=== PATIENT | female | born 1940 | race African-American/Black ===

== ENCOUNTER 2018-10-21 13:35 | Inpatient (IN) | payer BC ==
[~2018-10-21] VITALS: Ht 170.2 cm; Wt 82.1 kg
[~2018-10-21 13:35] MED LIST: Enoxaparin 80mg Inj SUBQ SCH
--- NOTE | 2018-10-21 14:10 | Emergency Room Report ---
History of Present Illness General Chief Complaint: Syncope Source: Patient, Medical Record, EMS Present Illness HPI This patient presents from a halfway facility. She has a history of Alzheimer's, bipolar and Parkinson's disease. Per report, the patient had an episode of near syncope after using the restroom. The patient herself has no complaints, however, at baseline she has severe dementia. She denies pain or recent illness. Per report, there were no other symptoms. The patient is asking to return to where she lives. She states "I'm ready to get out of here. " There are no other complaints. Allergies: Coded Allergies: PENICILLINS (Verified Allergy, Unknown, 10/21/18) SHELLFISH DERIVED (Verified Allergy, Unknown, 10/21/18) STRAWBERRY (Verified Allergy, Unknown, 10/21/18) Patient History Past Medical History: see triage record, old chart reviewed, HTN, psych hx - Bipolar, other - Glaucoma, Parkinsons Social History: Denies: smoking, alcohol use, drug use Reviewed Nursing Documentation: PMH: Agreed; PSxH: Agreed Nursing Documentation-PMH Past Medical History: No History, Except For Hx Hypertension: Yes - parkinson dz Review of Systems All Other Systems: negative except mentioned in HPI Physical Exam Vital Signs Date Time Temp Pulse Resp B/P (MAP) Pulse Ox O2 Delivery O2 Flow Rate FiO2 10/21/18 13:37 98.2 70 18 105/55 99 Room Air Sp02 EP Interpretation: reviewed, normal General Appearance: no apparent distress, alert, GCS 15, non-toxic Head: normocephalic, atraumatic Eyes: bilateral eye normal inspection, bilateral eye PERRL ENT: hearing grossly normal, normal pharynx, no angioedema, normal voice Neck: full range of motion, supple/symm/no masses Respiratory: chest non-tender, lungs clear, normal breath sounds, no respiratory distress, no retraction, no accessory muscle use, speaking full sentences Cardiovascular #1: regular rate, rhythm, no edema Gastrointestinal: normal bowel sounds, non tender, soft, non-distended, no guarding, no rebound Rectal: deferred Musculoskeletal: back normal, normal range of motion, non-tender Neurologic: alert, responsive, motor strength/tone normal, sensory intact, speech normal Psychiatric: mood/affect normal, no suicidal/homicidal ideation Skin: normal color, no rash, warm/dry, well hydrated Medical Decision Making Diagnostic Impression: Primary Impression: DVT (deep venous thrombosis) Additional Impression: Near syncope ER Course The patient's caregiver arrived to the emergency department later in the course of her workup and stated that a couple weeks ago she had fallen and that her primary care physician Dr. Hinds was requesting a head CT. She also states that she has noted intermittent leg swelling. She states that over the past week she has noted more swelling in the left leg and the patient has had a history of DVT in that leg. The caregiver is concerned about the swelling in the left leg. These concerns were added later. The initial pre-syncope workup was unremarkable and included EKG, CBC, CMP, urinalysis. I attempted to call the patient's primary care physician, Dr. Hinds, however Dr. Hinds did not call back or answer my calls. Therefore I was unable to speak with him. CT of the head was unremarkable. Left lower extremity ultrasound was positive for DVT. The patient did not have any respiratory symptoms, however, given the pre- syncope episode today, I felt that I should obtain a CTA of the chest. However , unfortunately, a large gauge IV was unable to be placed in the emergency department despite multiple attempts. I do not feel that it was a medical emergency at this patient obtain this study immediately. She will be admitted for further evaluation and treatment and a PICC line was ordered for tomorrow morning and she could obtain the CTA of the chest at that time. She is admitted for further evaluation and treatment. Laboratory Tests Test 10/21/18 14:45 10/21/18 15:15 White Blood Count 7.6 K/UL (4.8-10.8) Red Blood Count 5.63 M/UL (4.20-5.40) H Hemoglobin 13.9 G/DL (12.0-16.0) Hematocrit 44.5 % (37.0-47.0) Mean Corpuscular Volume 79 FL (80-99) L Mean Corpuscular Hemoglobin 24.7 PG (27.0-31.0) L Mean Corpuscular Hemoglobin Concent 31.3 G/DL (32.0-36.0) L Red Cell Distribution Width 13.9 % (11.6-14.8) Platelet Count 166 K/UL (150-450) Mean Platelet Volume 7.2 FL (6.5-10.1) Neutrophils (%) (Auto) 74.3 % (45.0-75.0) Lymphocytes (%) (Auto) 15.0 % (20.0-45.0) L Monocytes (%) (Auto) 8.7 % (1.0-10.0) Eosinophils (%) (Auto) 0.8 % (0.0-3.0) Basophils (%) (Auto) 1.2 % (0.0-2.0) Sodium Level 138 MMOL/L (136-145) Potassium Level 5.4 MMOL/L (3.5-5.1) H Chloride Level 102 MMOL/L (98-107) Carbon Dioxide Level 28 MMOL/L (21-32) Anion Gap 8 mmol/L (5-15) Blood Urea Nitrogen 17 mg/dL (7-18) Creatinine 1.4 MG/DL (0.55-1.30) H Estimate Glomerular Filtration Rate mL/min (>60) Glucose Level 134 MG/DL (74-106) H Calcium Level 8.8 MG/DL (8.5-10.1) Total Bilirubin 0.3 MG/DL (0.2-1.0) Aspartate Amino Transferase (AST) 25 U/L (15-37) Alanine Aminotransferase (ALT) 13 U/L (12-78) Alkaline Phosphatase 114 U/L (46-116) Troponin I 0.000 ng/mL (0.000-0.056) Total Protein 7.9 G/DL (6.4-8.2) Albumin 3.0 G/DL (3.4-5.0) L Globulin 4.9 g/dL Albumin/Globulin Ratio 0.6 (1.0-2.7) L Urine Color Pale yellow Urine Appearance Clear Urine pH 6 (4.5-8.0) Urine Specific Sutter 1.010 (1.005-1.035) Urine Protein Negative (NEGATIVE) Urine Glucose (UA) Negative (NEGATIVE) Urine Ketones Negative (NEGATIVE) Urine Blood Negative (NEGATIVE) Urine Nitrite Negative (NEGATIVE) Urine Bilirubin Negative (NEGATIVE) Urine Urobilinogen Normal MG/DL (0.0-1.0) Urine Leukocyte Esterase Negative (NEGATIVE) EKG Diagnostic Results Rate: normal Rhythm: NSR ST Segments: no acute changes Rhythm Strip Diag. Results EP Interpretation: yes Rate: 60's Rhythm: NSR, no PVC's, no ectopy Chest X-Ray Diagnostic Results Chest X-Ray Diagnostic Results : Chest X-Ray Ordered: Yes # of Views/Limited/Complete: 1 View Indication: Other EP Interpretation: Yes Interpretation: no consolidation, no effusion, no pneumothorax, no acute cardiopulmonary disease Impression: No acute disease Electronically Signed by: Tierney Diamond DO CT/MRI/US Diagnostic Results CT/MRI/US Diagnostic Results : Imaging Test Ordered: CT head, US LLE, CTA chest pending (to be done as inpatient) Impression No acute findings. Specifically no intracranial bleed, mass effect or edema. See official report. US LLE: +DVT Last Vital Signs Date Time Temp Pulse Resp B/P (MAP) Pulse Ox O2 Delivery O2 Flow Rate FiO2 10/21/18 13:37 98.2 70 18 105/55 99 Room Air Disposition: ADMITTED INPATIENT Condition: Serious Tierney Diamond DO Oct 21, 2018 14:10
[2018-10-21 14:34] VITALS: BP 101/46
[2018-10-21] MEDS ORDERED: LATANOPROST 0.7.5 ML OP (14:47)
[2018-10-21] MEDS ORDERED: DONEPEZIL HCL10 MG ORAL (14:47)
[2018-10-21] MEDS ORDERED: KLONOPIN0.5 MG ORAL (14:47)
[2018-10-21] MEDS ORDERED: SERTRALINE HCL25 MG ORAL (14:47)
[2018-10-21] MEDS ORDERED: FUROSEMIDE40 MG ORAL (14:47)
[2018-10-21] MEDS ORDERED: VITAMIN D400 INTLU ORAL (14:47)
[2018-10-21] MEDS ORDERED: QUETIAPINE FUM400 MG ORAL (14:47)
[2018-10-21] MEDS ORDERED: CRANBERRY400 M1 PO (14:47)
[2018-10-21] MEDS ORDERED: POTASSIUM CHLO20 ME2 ORAL (14:47)
[2018-10-21] MEDS ORDERED: DEPAKOTE250 MG PO (14:47)
[2018-10-21] MEDS ORDERED: NAMENDA10 MG ORAL (14:47)
--- NOTE | 2018-10-21 14:47 | Diagnostic Imaging Report ---
Indication: Chest pain Technique: One view of the chest Comparison: none Findings: Suboptimal inspiration. The heart is upper limits normal in size. Lungs and pleural spaces are clear except for minimal central bronchial wall thickening. Impression: No acute process
[2018-10-21 14:54] LABS: BASOPHILS % (AUTO) 1.2 % (0.0-2.0); EOSINOPHILS % (AUTO) 0.8 % (0.0-3.0); HEMATOCRIT 44.5 % (37.0-47.0); HEMOGLOBIN 13.9 G/DL (12.0-16.0); MEAN CORPUSCULAR VOLUME 79 FL (80-99); MONOCYTES % (AUTO) 8.7 % (1.0-10.0); NEUTROPHILS % (AUTO) 74.3 % (45.0-75.0); PLATELET COUNT 166 K/UL (150-450); RED BLOOD COUNT 5.63 M/UL (4.20-5.40); RED CELL DISTRIBUTION WIDTH 13.9 % (11.6-14.8); WHITE BLOOD COUNT 7.6 K/UL (4.8-10.8)
[2018-10-21 15:08] LABS: ANION GAP 8 mmol/L (5-15); BLOOD UREA NITROGEN 17 mg/dL (7-18); CALCIUM 8.8 MG/DL (8.5-10.1); CARBON DIOXIDE 28 MMOL/L (21-32); CHLORIDE 102 MMOL/L (98-107); CREATININE 1.4 MG/DL (0.55-1.30); POTASSIUM 5.4 MMOL/L (3.5-5.1); SODIUM 138 MMOL/L (136-145)
[2018-10-21 15:13] LABS: ALANINE AMINOTRANSFERASE 13 U/L (12-78); ALBUMIN/GLOBULIN RATIO 0.6 (1.0-2.7); ALKALINE PHOSPHATASE 114 U/L (46-116); ASPARTATE AMINO TRANSFERASE 25 U/L (15-37); BILIRUBIN,TOTAL 0.3 MG/DL (0.2-1.0)
[2018-10-21 15:40] LABS: APPEARANCE,URINE CLEAR; BILIRUBIN, URINE NEGATIVE (NEGATIVE); COLOR,URINE PALE YELLOW; GLUCOSE, URINE (UA) NEGATIVE (NEGATIVE); KETONES,URINE NEGATIVE (NEGATIVE); LEUKOCYTE ESTERASE ,URINE NEGATIVE (NEGATIVE); NITRITE,URINE NEGATIVE (NEGATIVE); PH,URINE 6 (4.5-8.0); PROTEIN,URINE NEGATIVE (NEGATIVE); UROBILINOGEN,URINE NORMAL MG/DL (0.0-1.0)
[2018-10-21 15:56] VITALS: BP 118/73
[2018-10-21] MEDS ORDERED: Isovue-370 150ml vial INJ PRN (16:30)
--- NOTE | 2018-10-21 16:48 | Diagnostic Imaging Report ---
Indication: Left leg pain Technique: Grayscale and duplex images of the left lower extremity veins Comparison: none Findings: Hypoechoic incompletely occlusive thrombus is seen within the left common femoral vein. This results in incomplete compressibility. Thrombus also appears to extend into the orifice of the greater saphenous vein. There is some preserved flow despite the presence of a thrombus. The femoral and popliteal veins demonstrate no evidence of intraluminal thrombus, normal compressibility, normal phasic Doppler waveforms with normal augmentation response Impression: Positive for incompletely occlusive deep venous thrombosis of the left common femoral vein, with involvement of the greater saphenous venous orifice Findings discussed by phone with Dr. Lutz in the emergency room at the time of interpretation
--- NOTE | 2018-10-21 17:01 | Diagnostic Imaging Report ---
Indication: Altered mental status Technique: spiral acquisitions obtained through the brain. Angled axial and coronal 5 x 5 mm slices were reconstructed. No IV contrast utilized. Radiation dose was minimized using automated exposure control Total dose length product 2424.7 mGycm. CTDIvol(s) 70.38,70.38,70.38 mGy Comparison: none FINDINGS: There is slight image degradation due to motion artifact, despite multiple acquisitions No acute hemorrhage or edema. No mass effect or midline shift. There is age-related enlargement of the ventricles and extra axial CSF spaces. There is periventricular deep white matter ischemic change. Normal rhodes-white differentiation. Visualized orbits are unremarkable. Visualized sinuses are unremarkable. Intact calvarium. IMPRESSION: Chronic and age-related changes. Negative for acute intracranial bleed or mass effect The CT scanner at [facility] is accredited by the [employer] and the scans are performed using protocols designed to limit radiation exposure to as low as reasonably achievable to attain images of sufficient resolution adequate for diagnostic evaluation
[2018-10-21] MEDS ORDERED: Lidocaine 1% Plain 30 ml INJ ONE (18:00)
[2018-10-21] MEDS ORDERED: Heparin 2000 units/Ns 1000ml INJ ONE (18:00)
[2018-10-21] MEDS ORDERED: Enoxaparin 80mg Inj SUBQ ONE (18:30)
[2018-10-21] MEDS ORDERED: CARBOXYMETHYLCELLULOSE OP (18:33)
[2018-10-21] MEDS ORDERED: ARTIFICIAL TEAR15 ML BOTH EYES (18:33)
[2018-10-21] MEDS ORDERED: VRAYLAR PO (18:33)
[2018-10-21] MEDS ORDERED: BRIMONIDINE TART5 ML BOTH EYES (18:33)
[2018-10-21] MEDS ORDERED: Dyna-Hex 2% Top Sol 2oz TOPIC SCH (20:00)
[2018-10-21 21:30] VITALS: BP 104/39
[2018-10-21] MEDS ORDERED: Guaifenesin/DM 10ml syrup ORAL PRN (22:45)
[2018-10-22] VITALS: BP 139/57
[2018-10-22] MEDS ORDERED: Enoxaparin 80mg Inj SUBQ SCH
[2018-10-22] MEDS: Depakote 500mg tab ORAL SCH ×3 (00:24→21:00)
[2018-10-22] MEDS: Donepezil 10mg tab ORAL SCH ×2 (00:24→21:28)
[2018-10-22 04:00] VITALS: BP 125/60
[2018-10-22 07:23] LABS: BASOPHILS % (AUTO) 1.5 % (0.0-2.0); EOSINOPHILS % (AUTO) 2.4 % (0.0-3.0); HEMATOCRIT 40.2 % (37.0-47.0); HEMOGLOBIN 12.9 G/DL (12.0-16.0); LYMPHOCYTES % (AUTO) 42.6 % (20.0-45.0); MEAN CORPUSCULAR VOLUME 79 FL (80-99); MONOCYTES % (AUTO) 9.1 % (1.0-10.0); NEUTROPHILS % (AUTO) 44.4 % (45.0-75.0); PLATELET COUNT 140 K/UL (150-450); RED BLOOD COUNT 5.12 M/UL (4.20-5.40); RED CELL DISTRIBUTION WIDTH 13.4 % (11.6-14.8); WHITE BLOOD COUNT 5.1 K/UL (4.8-10.8)
[2018-10-22 07:43] LABS: ALANINE AMINOTRANSFERASE 12 U/L (12-78); ALBUMIN 2.7 G/DL (3.4-5.0); ALBUMIN/GLOBULIN RATIO 0.6 (1.0-2.7); ALKALINE PHOSPHATASE 103 U/L (46-116); ANION GAP 6 mmol/L (5-15); ASPARTATE AMINO TRANSFERASE 20 U/L (15-37); BILIRUBIN,TOTAL 0.4 MG/DL (0.2-1.0); BLOOD UREA NITROGEN 11 mg/dL (7-18); CALCIUM 8.2 MG/DL (8.5-10.1); CARBON DIOXIDE 28 MMOL/L (21-32); CHLORIDE 103 MMOL/L (98-107); CREATININE 1.1 MG/DL (0.55-1.30); PHOSPHORUS 2.8 MG/DL (2.5-4.9); POTASSIUM 4.1 MMOL/L (3.5-5.1); SODIUM 137 MMOL/L (136-145)
[2018-10-22 08:00] VITALS: BP 113/61
[2018-10-22] MEDS ORDERED: Furosemide 40mg tab ORAL SCH (09:00)
[2018-10-22 09:31] LABS: CHOLESTEROL 193 MG/DL (< 200); HDL CHOLESTEROL 39 MG/DL (40-60); TRIGLYCERIDES 168 MG/DL (30-150)
[2018-10-22] MEDS: Artificial Tears 1.4% Op Soln BOTH EYES SCH ×3 (09:54→17:46)
[2018-10-22] MEDS: Brimonidine 0.2% Opth Sol BOTH EYES SCH ×2 (09:55→17:46)
[2018-10-22] MEDS: Vitamin D 1000 IU Tab ORAL SCH (09:55)
[2018-10-22] MEDS: Sertraline 50mg tab ORAL SCH (09:56)
[2018-10-22] MEDS: Memantine 10mg tab ORAL SCH (09:56)
--- NOTE | 2018-10-22 10:22 | History & Physical ---
History and Physical History & Physicial This patient presents from a senior living facility. She has a history of Alzheimer's, bipolar and Parkinson's disease. Per report, the patient had an episode of near syncope after using the restroom. The patient herself has no complaints, however, at baseline she has severe dementia. She denies pain or recent illness. Per report, there were no other symptoms. The patient is asking to return to where she lives. She states "I'm ready to get out of here. " There are no other complaints. Allergies: PENICILLINS (Verified Allergy, Unknown, 10/21/18) SHELLFISH DERIVED (Verified Allergy, Unknown, 10/21/18) STRAWBERRY (Verified Allergy, Unknown, 10/21/18) Past Medical History: see triage record, old chart reviewed, HTN, psych hx - Bipolar, other - Glaucoma, Parkinsons Social History: Denies: smoking, alcohol use, drug use Reviewed Nursing Documentation: PMH: Agreed; PSxH: Agreed Nursing Documentation-PMH Past Medical History: No History, Except For Hx Hypertension: Yes - parkinson dz examined DVT Dementia Psych disease near syncope [id number] Ronnie Torres MD Oct 22, 2018 10:22
[2018-10-22 12:00] VITALS: BP 106/84
[2018-10-22] MEDS: Enoxaparin 80mg Inj SUBQ SCH (12:31)
--- NOTE | 2018-10-22 13:00 | History and Physical Report ---
DATE OF ADMISSION: 10/21/2018 HISTORY OF PRESENT ILLNESS: The patient is a 78-year-old female from [facility], came into our emergency room with near syncope and was found to also have acute DVT. The patient has history of Alzheimer's, bipolar's, Parkinson's, and apparently a history of near falling down was given by the environmental protection geologist to the ER physician. The patient has a baseline severe dementia. ALLERGIES: Penicillin, shellfish, and strawberry. PAST HISTORY: Hypertension, psych disease, bipolar, glaucoma, and Parkinson's. MEDICATIONS: The patient is normally taking in the facility includes eye drops and psych medications including Klonopin, Depakote, Aricept, Namenda, Seroquel, and Zoloft. The patient is also on low dose of Lasix and potassium chloride. PHYSICAL EXAMINATION: GENERAL: This morning, the patient is not in any distress. Not a historian. VITAL SIGNS: Afebrile, pulse rate varies from 55 to 65, blood pressure 113/61. HEENT: Head is normocephalic. Sclerae not icteric. NECK: Supple. LUNGS: No wheeze. HEART: Regular, somewhat bradycardic. ABDOMEN: Soft. EXTREMITIES: Lower extremities, the patient has bilateral edema. DIAGNOSTIC DATA: The chest x-ray, which was done showed no acute process. The head CT showed chronic changes, negative for intracranial bleed. The Doppler showed deep venous thrombosis of the left common femoral artery. IMPRESSION: 1. DVT. 2. Near syncope. 3. Dementia. 4. History of psych disease. PLAN: The patient's psych medications will be adjusted, blood pressure with orthostatic is going to be checked. Psych evaluation will be requested. Meanwhile, the patient will be started on Lovenox and Coumadin with monitoring the PT. According to how the patient's condition evolves, we will make the proper changes in our future management. Ronnie Torres M.D. DR: LOUIE JOB#: [id number] CC:
[2018-10-22 14:00] LABS: INR 0.9 (0.9-1.1)
[2018-10-22 16:00] VITALS: BP 120/76
[2018-10-22] MEDS ORDERED: Warfarin Sodium 10mg ORAL ONE (17:00)
[2018-10-22 20:00] VITALS: BP 110/51
[2018-10-22] MEDS ORDERED: Nail Polish Remover TOPIC ONE (21:00)
[2018-10-22] MEDS: Latanoprost 0.005% Opth 2.5ml Soln BOTH EYES SCH (21:28)
[2018-10-23] VITALS: BP 113/62
[2018-10-23] MEDS: Enoxaparin 80mg Inj SUBQ SCH ×2 (00:21→12:57)
[2018-10-23 04:00] VITALS: BP 119/71
[2018-10-23 08:00] VITALS: BP 115/74
[2018-10-23] MEDS: Artificial Tears 1.4% Op Soln BOTH EYES SCH ×3 (08:24→17:54)
[2018-10-23] MEDS: Memantine 10mg tab ORAL SCH (08:25)
[2018-10-23] MEDS: Sertraline 50mg tab ORAL SCH (08:25)
[2018-10-23] MEDS: Brimonidine 0.2% Opth Sol BOTH EYES SCH ×2 (08:25→17:53)
[2018-10-23] MEDS: Vitamin D 1000 IU Tab ORAL SCH (08:25)
[2018-10-23] MEDS: Depakote 500mg tab ORAL SCH (08:26)
--- NOTE | 2018-10-23 09:26 | General Progress Note ---
Assessment/Plan Problem List: (1) DVT (deep venous thrombosis) ICD Codes: I82.409 - Acute embolism and thrombosis of unspecified deep veins of unspecified lower extremity SNOMED: 644446135 (2) Near syncope ICD Codes: R55 - Syncope and collapse SNOMED: 637188494 Status: stable Status Narrative deep venous thrombosis of the left common femoral artery. IMPRESSION: 1. DVT. deep venous thrombosis of the left common femoral artery. 2. Near syncope. 3. Dementia. 4. History of psych disease. Assessment/Plan coumadin Lovenox adjust psych meds DC in am ? Subjective ROS Limited/Unobtainable: No Constitutional: Reports: malaise Allergies: Coded Allergies: PENICILLINS (Verified Allergy, Unknown, 10/21/18) SHELLFISH DERIVED (Verified Allergy, Unknown, 10/21/18) STRAWBERRY (Verified Allergy, Unknown, 10/21/18) Objective Last 24 Hour Vital Signs Date Time Temp Pulse Resp B/P (MAP) Pulse Ox O2 Delivery O2 Flow Rate FiO2 10/23/18 04:00 61 10/23/18 04:00 97.0 62 18 119/71 (87) 99 10/23/18 00:00 98.4 59 18 113/62 (79) 100 10/23/18 00:00 57 10/22/18 21:00 Room Air 10/22/18 20:00 59 10/22/18 20:00 98.1 58 18 110/51 (70) 98 10/22/18 16:00 61 10/22/18 16:00 98.3 67 18 120/76 (91) 100 10/22/18 12:00 98.1 60 18 106/84 (91) 99 10/22/18 12:00 54 Intake and Output 10/22/18 10/23/18 19:00 07:00 Intake Total 390 ml Balance 390 ml Intake Oral 390 ml # Voids 2 2 Laboratory Tests 10/22/18 13:24: Prothrombin Time 10.0, Prothromb Time International Ratio 0.9, Activated Partial Thromboplast Time 24 10/23/18 05:30: Prothrombin Time 10.8, Prothromb Time International Ratio 1.0 Height (Feet): 5 Height (Inches): 7.00 Weight (Pounds): 181 General Appearance: no apparent distress Cardiovascular: normal rate, bradycardia Respiratory/Chest: lungs clear Abdomen: soft Objective no change Ronnie Torres MD Oct 23, 2018 09:26
[2018-10-23 12:00] VITALS: BP 109/54
[2018-10-23 16:00] VITALS: BP 115/58
[2018-10-23] MEDS ORDERED: Warfarin Sodium 7.5mg ORAL SCH (17:00)
[2018-10-23 20:00] VITALS: BP 117/86
[2018-10-23] MEDS: Donepezil 10mg tab ORAL SCH (20:52)
[2018-10-23] MEDS: Latanoprost 0.005% Opth 2.5ml Soln BOTH EYES SCH (20:52)
[2018-10-23] MEDS ORDERED: Depakote 125mg Sprinkles ORAL SCH (21:00)
[2018-10-23] MEDS ORDERED: Depakote 500mg tab ORAL SCH (21:00)
--- NOTE | 2018-10-23 22:41 | Consultation ---
History of Present Illness General Date patient seen: Oct 22, 2018 Chief Complaint: Syncope Present Illness HPI 78-year-old female with hx of mmp, dementia and depression who was admitted from [facility], with near syncope and acute DVT. The pt is more confused than baseline the wound care nurse was in room. the pt cont to have episodes of agitation. The pt is on multiple psychotropic medications. the pt is unable to provide meaningful history and is Allergies: Coded Allergies: PENICILLINS (Verified Allergy, Unknown, 10/21/18) SHELLFISH DERIVED (Verified Allergy, Unknown, 10/21/18) STRAWBERRY (Verified Allergy, Unknown, 10/21/18) Medication History Scheduled Brimonidine Tartrate* (Alphagan*), 1 DROP BOTH EYES BID, (Reported) Clonazepam* (Klonopin*), 0.5 MG ORAL Q12HR, (Reported) Cranberry Fruit (Cranberry), 400 MG PO BID, (Reported) Dextran 70/Hypromellose (Artificial Tears Eye Drops*), 1 DROP BOTH EYES TID, ( Reported) Divalproex Sodium* (Depakote*), 500 MG PO Q12HR, (Reported) Donepezil Hcl* (Donepezil Hcl*), 10 MG ORAL QHS, (Reported) Furosemide* (Lasix*), 40 MG ORAL DAILY, (Reported) Latanoprost/Pf (Latanoprost 0.005% Eye Drop), 7.5 ML OP BEDTIME, (Reported) Memantine Hcl* (Namenda*), 10 MG ORAL DAILY, (Reported) Potassium Chloride (Potassium Chloride), 20 MEQ ORAL DAILY, (Reported) Quetiapine Fumarate* (Quetiapine Fumarate*), 100 MG ORAL TID, (Reported) Sertraline Hcl* (Sertraline Hcl*), 50 MG ORAL DAILY, (Reported) Vitamin D (Vitamin D3), 2,000 UNITS ORAL DAILY, (Reported) [Celluvisc Lubricant], 1 DROP OP QHS, (Reported) [Vraylar], 3 MG PO DAILY, (Reported) Patient History Limited by: medical condition History Provided By: Patient, Medical Record, PMD Healthcare decision maker Dr. Eliana Bass Resuscitation status Full Code Advanced Directive on File No Past Medical/Surgical History Past Medical/Surgical History: (1) DVT (deep venous thrombosis) (2) Near syncope (3) Diabetes 1.5, managed as type 2 Review of Systems Psychiatric: Reports: prior hx, anxiety, depressed feelings, emotional problems Physical Exam General Appearance: WD/WN, alert, confused, agitated Neurologic: responsive, disoriented, depressed affect Last 24 Hour Vital Signs Date Time Temp Pulse Resp B/P (MAP) Pulse Ox O2 Delivery O2 Flow Rate FiO2 10/23/18 21:00 Room Air 10/23/18 20:00 98.7 67 18 117/86 (96) 96 10/23/18 20:00 62 10/23/18 16:00 64 10/23/18 16:00 98.7 68 16 115/58 (77) 97 10/23/18 12:00 98.3 63 18 109/54 (72) 97 10/23/18 12:00 64 10/23/18 09:00 Room Air 10/23/18 08:00 61 10/23/18 08:00 98.1 62 18 115/74 (88) 99 10/23/18 04:00 61 10/23/18 04:00 97.0 62 18 119/71 (87) 99 10/23/18 00:00 98.4 59 18 113/62 (79) 100 10/23/18 00:00 57 Intake and Output 10/22/18 10/23/18 19:00 07:00 Intake Total 390 ml Balance 390 ml Intake Oral 390 ml # Voids 2 2 Laboratory Tests Test 10/23/18 05:30 Prothrombin Time 10.8 SEC (9.30-11.50) Prothromb Time International Ratio 1.0 (0.9-1.1) Height (Feet): 5 Height (Inches): 7.00 Weight (Pounds): 181 Medications Current Medications Medications (Trade) Dose Ordered Sig/Vijay Route PRN Reason Start Time Stop Time Status Last Admin Dose Admin Acetaminophen (Tylenol) 650 mg Q4H PRN ORAL Mild Pain/Temp > 100.5 10/21/18 22:45 11/20/18 22:44 Artificial Tears (Akwa-Tears) 1 drop TID BOTH EYES 10/22/18 09:00 11/21/18 08:59 10/23/18 17:54 Brimonidine Tartrate (Alphagan) 1 drop BID BOTH EYES 10/22/18 09:00 11/21/18 08:59 10/23/18 17:53 Divalproex Sodium (Depakote Sprinkles) 500 mg Q12HR ORAL 10/23/18 21:00 11/22/18 20:59 10/23/18 20:52 Donepezil HCl (Aricept) 10 mg QHS ORAL 10/21/18 23:30 11/20/18 23:29 10/23/18 20:52 Enoxaparin Sodium (Lovenox) 80 mg Q12H SUBQ 10/22/18 12:00 11/21/18 11:59 10/23/18 12:57 Guaifenesin/ Dextromethorphan (Robitussin DM Syrup) 10 ml Q4H PRN ORAL For Cough 10/21/18 22:45 11/20/18 22:44 Latanoprost (Xalatan) 1 drop BEDTIME BOTH EYES 10/22/18 21:00 11/21/18 20:59 10/23/18 20:52 Memantine (Namenda) 10 mg DAILY ORAL 10/22/18 09:00 11/21/18 08:59 10/23/18 08:25 Pantoprazole (Protonix) 40 mg BID ORAL 10/22/18 18:00 11/21/18 17:59 10/23/18 17:53 Sertraline HCl (Zoloft) 50 mg DAILY ORAL 10/22/18 09:00 11/21/18 08:59 10/23/18 08:25 Vitamin D (Vitamin D) 2,000 intlu DAILY ORAL 10/22/18 09:00 11/21/18 08:59 10/23/18 08:25 Warfarin Sodium (Coumadin) 7.5 mg DAILY@17 ORAL 10/23/18 17:00 10/28/18 16:59 10/23/18 17:53 Assessment/Plan Problem List: (1) Dementia with behavioral disturbance ICD Codes: F03.91 - Unspecified dementia with behavioral disturbance SNOMED: 2701962878216 Status: unchanged Assessment/Plan dc aricept dc nemanda decrease depakote decrease seroquel the pt lacks capacity to make decisions. MIPS Medication Reconciliation Is this a Psycho/Diag encounte: Yes Unhealthy Alcohol Use 431 (psycho/diag only) Patient was screened for unhealthy alcohol use today or within the past 2 years. Patient was NOT identified as an unhealthy alcohol user. Tobacco Use 226 (psycho/diag only) Patient was screened for tobacco use today or within the past 2 years. Patient was NOT identified as a tobacco user. BMI 128 (psycho/diag only) BMI was documented today or within the past year. BMI was outside normal parameters, and the patient received counseling. Depression 134,411,370 (psycho/diag only) Depression screening was performed today. PHQ-9 Score: 2 Does this Patient have Dementi: Yes Safety Screening-Dementia 286 (psycho/diag only) Safety screening performed today-negative. Caregiver Health-Dementia 288 (psycho/diag only) Caregiver was informed today that he/she is at an increased risk of illness, including circulatory and heart conditions, respiratory disease, hypertension, anxiety, and depression. Caregiver was provided with education on dementia disease management and referred to additional resources for support. Ramon De Paz MD Oct 23, 2018 22:41
--- NOTE | 2018-10-23 22:42 | General Progress Note ---
Assessment/Plan Problem List: (1) Dementia with behavioral disturbance ICD Codes: F03.91 - Unspecified dementia with behavioral disturbance SNOMED: 9295661847020 Status: stable, progressing Subjective Date patient seen: Oct 23, 2018 Neurologic/Psychiatric: Reports: anxiety Allergies: Coded Allergies: PENICILLINS (Verified Allergy, Unknown, 10/21/18) SHELLFISH DERIVED (Verified Allergy, Unknown, 10/21/18) STRAWBERRY (Verified Allergy, Unknown, 10/21/18) Subjective the child care center administrator in room Objective Last 24 Hour Vital Signs Date Time Temp Pulse Resp B/P (MAP) Pulse Ox O2 Delivery O2 Flow Rate FiO2 10/23/18 21:00 Room Air 10/23/18 20:00 98.7 67 18 117/86 (96) 96 10/23/18 20:00 62 10/23/18 16:00 64 10/23/18 16:00 98.7 68 16 115/58 (77) 97 10/23/18 12:00 98.3 63 18 109/54 (72) 97 10/23/18 12:00 64 10/23/18 09:00 Room Air 10/23/18 08:00 61 10/23/18 08:00 98.1 62 18 115/74 (88) 99 10/23/18 04:00 61 10/23/18 04:00 97.0 62 18 119/71 (87) 99 10/23/18 00:00 98.4 59 18 113/62 (79) 100 10/23/18 00:00 57 Intake and Output 10/22/18 10/23/18 19:00 07:00 Intake Total 390 ml Balance 390 ml Intake Oral 390 ml # Voids 2 2 Laboratory Tests 10/23/18 05:30: Prothrombin Time 10.8, Prothromb Time International Ratio 1.0 Height (Feet): 5 Height (Inches): 7.00 Weight (Pounds): 181 General Appearance: alert, confused, agitated, overweight Neurologic: disoriented, depressed affect MIPS Medication Reconciliation Is this a Psycho/Diag encounte: Ramon Fitch MD Oct 23, 2018 22:42
[2018-10-24] VITALS: BP 114/60
[2018-10-24] MEDS: Enoxaparin 80mg Inj SUBQ SCH (00:10)
[2018-10-24 04:00] VITALS: BP 140/80
[2018-10-24 06:44] LABS: INR 2.6 (0.9-1.1)
[2018-10-24 08:00] VITALS: BP 109/55
[2018-10-24] MEDS: Vitamin D 1000 IU Tab ORAL SCH (08:21)
[2018-10-24] MEDS: Brimonidine 0.2% Opth Sol BOTH EYES SCH ×2 (08:22→18:16)
[2018-10-24] MEDS: Artificial Tears 1.4% Op Soln BOTH EYES SCH ×3 (08:22→18:16)
--- NOTE | 2018-10-24 09:44 | General Progress Note ---
Assessment/Plan Problem List: (1) DVT (deep venous thrombosis) ICD Codes: I82.409 - Acute embolism and thrombosis of unspecified deep veins of unspecified lower extremity SNOMED: 574894479 (2) Near syncope ICD Codes: R55 - Syncope and collapse SNOMED: 526561806 (3) Diabetes 1.5, managed as type 2 ICD Codes: E10.9 - Type 1 diabetes mellitus without complications SNOMED: 889268050 Status: stable Status Narrative INR 2.6 Assessment/Plan DC coumadin & Lovenox adjust psych meds check INR in am DC in am ? Subjective ROS Limited/Unobtainable: No Allergies: Coded Allergies: PENICILLINS (Verified Allergy, Unknown, 10/21/18) SHELLFISH DERIVED (Verified Allergy, Unknown, 10/21/18) STRAWBERRY (Verified Allergy, Unknown, 10/21/18) Objective Last 24 Hour Vital Signs Date Time Temp Pulse Resp B/P (MAP) Pulse Ox O2 Delivery O2 Flow Rate FiO2 10/24/18 08:00 98.2 59 20 109/55 (73) 96 10/24/18 04:00 59 10/24/18 04:00 97.9 58 20 140/80 (100) 98 10/24/18 00:00 98.6 63 18 114/60 (78) 97 10/24/18 00:00 67 10/23/18 21:00 Room Air 10/23/18 20:00 98.7 67 18 117/86 (96) 96 10/23/18 20:00 62 10/23/18 16:00 64 10/23/18 16:00 98.7 68 16 115/58 (77) 97 10/23/18 12:00 98.3 63 18 109/54 (72) 97 10/23/18 12:00 64 Intake and Output 10/23/18 10/24/18 19:00 07:00 Intake Total 630 ml Output Total 650 ml 500 ml Balance -20 ml -500 ml Intake Oral 630 ml Output Urine Total 650 ml 500 ml # Voids 2 # Bowel Movements 2 1 Current Medications Medications (Trade) Dose Ordered Sig/Vijay Route PRN Reason Start Time Stop Time Status Last Admin Dose Admin Acetaminophen (Tylenol) 650 mg Q4H PRN ORAL Mild Pain/Temp > 100.5 10/21/18 22:45 1/6/19 22:44 Artificial Tears (Akwa-Tears) 1 drop TID BOTH EYES 10/22/18 09:00 11/21/18 08:59 10/24/18 08:22 Brimonidine Tartrate (Alphagan) 1 drop BID BOTH EYES 10/22/18 09:00 11/21/18 08:59 10/24/18 08:22 Divalproex Sodium (Depakote Sprinkles) 500 mg BEDTIME ORAL 10/24/18 21:00 11/23/18 20:59 Guaifenesin/ Dextromethorphan (Robitussin DM Syrup) 10 ml Q4H PRN ORAL For Cough 10/21/18 22:45 11/20/18 22:44 Latanoprost (Xalatan) 1 drop BEDTIME BOTH EYES 10/22/18 21:00 11/21/18 20:59 10/23/18 20:52 Pantoprazole (Protonix) 40 mg BID ORAL 10/22/18 18:00 11/21/18 17:59 10/24/18 08:21 Quetiapine Fumarate (SEROquel) 25 mg THREE TIMES A DAY ORAL 10/24/18 09:00 11/23/18 08:59 10/24/18 08:21 Vitamin D (Vitamin D) 2,000 intlu DAILY ORAL 10/22/18 09:00 11/21/18 08:59 10/24/18 08:21 Laboratory Tests 10/24/18 05:43: Prothrombin Time 26.4H, Prothromb Time International Ratio 2.6H Height (Feet): 5 Height (Inches): 7.00 Weight (Pounds): 181 General Appearance: no apparent distress Cardiovascular: normal rate Respiratory/Chest: lungs clear Abdomen: soft Objective no change Ronnie Torres MD Oct 24, 2018 09:44
[2018-10-24 12:00] VITALS: BP 104/63
--- NOTE | 2018-10-24 13:06 | General Progress Note ---
Assessment/Plan Problem List: (1) Dementia with behavioral disturbance ICD Codes: F03.91 - Unspecified dementia with behavioral disturbance SNOMED: 3623519116921 Status: stable, progressing Assessment/Plan dc aricept dc nemanda decrease depakote decrease seroquel the pt lacks capacity to make decisions. Subjective Date patient seen: Oct 24, 2018 Neurologic/Psychiatric: Reports: anxiety Allergies: Coded Allergies: PENICILLINS (Verified Allergy, Unknown, 10/21/18) SHELLFISH DERIVED (Verified Allergy, Unknown, 10/21/18) STRAWBERRY (Verified Allergy, Unknown, 10/21/18) Subjective the physician primary care sports medicine in room. the pt is doing better now more alert and less agitated. Objective Last 24 Hour Vital Signs Date Time Temp Pulse Resp B/P (MAP) Pulse Ox O2 Delivery O2 Flow Rate FiO2 10/24/18 09:00 Room Air 10/24/18 08:00 66 10/24/18 08:00 98.2 59 20 109/55 (73) 96 10/24/18 04:00 59 10/24/18 04:00 97.9 58 20 140/80 (100) 98 10/24/18 00:00 98.6 63 18 114/60 (78) 97 10/24/18 00:00 67 10/23/18 21:00 Room Air 10/23/18 20:00 98.7 67 18 117/86 (96) 96 10/23/18 20:00 62 10/23/18 16:00 64 10/23/18 16:00 98.7 68 16 115/58 (77) 97 Intake and Output 10/23/18 10/24/18 19:00 07:00 Intake Total 630 ml Output Total 650 ml 500 ml Balance -20 ml -500 ml Intake Oral 630 ml Output Urine Total 650 ml 500 ml # Voids 2 # Bowel Movements 2 1 Laboratory Tests 10/24/18 05:43: Prothrombin Time 26.4H, Prothromb Time International Ratio 2.6H Height (Feet): 5 Height (Inches): 7.00 Weight (Pounds): 181 General Appearance: alert, confused, overweight Neurologic: normal mood/affect, disoriented MIPS Medication Reconciliation Is this a Psycho/Diag encounte: Ramon Fitch MD Oct 24, 2018 13:06
[2018-10-24 16:00] VITALS: BP 132/70
[2018-10-24 20:00] VITALS: BP 102/75
[2018-10-24] MEDS: Latanoprost 0.005% Opth 2.5ml Soln BOTH EYES SCH (20:37)
[2018-10-24] MEDS ORDERED: Depakote 125mg Sprinkles ORAL SCH (21:00)
[2018-10-25] VITALS: BP 103/71
[2018-10-25 04:00] VITALS: BP 115/60
[2018-10-25 06:14] LABS: BASOPHILS % (AUTO) 1.4 % (0.0-2.0); EOSINOPHILS % (AUTO) 4.2 % (0.0-3.0); HEMATOCRIT 43.1 % (37.0-47.0); HEMOGLOBIN 13.5 G/DL (12.0-16.0); LYMPHOCYTES % (AUTO) 40.7 % (20.0-45.0); MEAN CORPUSCULAR VOLUME 79 FL (80-99); MONOCYTES % (AUTO) 12.8 % (1.0-10.0); NEUTROPHILS % (AUTO) 40.9 % (45.0-75.0); PLATELET COUNT 168 K/UL (150-450); RED BLOOD COUNT 5.46 M/UL (4.20-5.40); RED CELL DISTRIBUTION WIDTH 13.9 % (11.6-14.8); WHITE BLOOD COUNT 5.1 K/UL (4.8-10.8)
[2018-10-25 06:22] LABS: INR 2.9 (0.9-1.1)
[2018-10-25 06:35] LABS: ALANINE AMINOTRANSFERASE 86 U/L (12-78); ALBUMIN 2.7 G/DL (3.4-5.0); ALBUMIN/GLOBULIN RATIO 0.6 (1.0-2.7); ALKALINE PHOSPHATASE 95 U/L (46-116); ANION GAP 7 mmol/L (5-15); ASPARTATE AMINO TRANSFERASE 137 U/L (15-37); BILIRUBIN,TOTAL 0.2 MG/DL (0.2-1.0); BLOOD UREA NITROGEN 21 mg/dL (7-18); CALCIUM 8.6 MG/DL (8.5-10.1); CARBON DIOXIDE 29 MMOL/L (21-32); CHLORIDE 103 MMOL/L (98-107); CREATININE 1.3 MG/DL (0.55-1.30); POTASSIUM 4.3 MMOL/L (3.5-5.1); SODIUM 139 MMOL/L (136-145)
[2018-10-25 08:00] VITALS: BP 141/59
[2018-10-25] MEDS: Brimonidine 0.2% Opth Sol BOTH EYES SCH (08:46)
[2018-10-25] MEDS: Artificial Tears 1.4% Op Soln BOTH EYES SCH ×2 (08:46→13:28)
[2018-10-25] MEDS: Vitamin D 1000 IU Tab ORAL SCH (08:46)
[2018-10-25 12:00] VITALS: BP 108/55
--- NOTE | 2018-10-25 13:21 | General Progress Note ---
Assessment/Plan Problem List: (1) DVT (deep venous thrombosis) ICD Codes: I82.409 - Acute embolism and thrombosis of unspecified deep veins of unspecified lower extremity SNOMED: 130639097 (2) Near syncope ICD Codes: R55 - Syncope and collapse SNOMED: 534938188 (3) Diabetes 1.5, managed as type 2 ICD Codes: E10.9 - Type 1 diabetes mellitus without complications SNOMED: 972403302 Status: stable Status Narrative INR 2.9 Assessment/Plan adjust psych meds per Dr De Paz appreciated INR check DC [facility] today Subjective ROS Limited/Unobtainable: No Allergies: Coded Allergies: PENICILLINS (Verified Allergy, Unknown, 10/21/18) SHELLFISH DERIVED (Verified Allergy, Unknown, 10/21/18) STRAWBERRY (Verified Allergy, Unknown, 10/21/18) Objective Last 24 Hour Vital Signs Date Time Temp Pulse Resp B/P (MAP) Pulse Ox O2 Delivery O2 Flow Rate FiO2 10/25/18 12:00 55 10/25/18 12:00 98.2 56 20 108/55 (72) 97 10/25/18 09:00 Room Air 10/25/18 08:00 97.4 58 20 141/59 (86) 98 10/25/18 08:00 55 10/25/18 04:00 61 10/25/18 04:00 97.2 61 20 115/60 (78) 98 10/25/18 00:00 60 10/25/18 00:00 98.6 70 20 103/71 (82) 99 10/24/18 21:00 Room Air 10/24/18 20:00 98.2 71 18 102/75 (84) 95 10/24/18 20:00 67 10/24/18 16:00 98.2 70 20 132/70 (90) 90 10/24/18 16:00 60 Intake and Output 10/24/18 10/25/18 19:00 07:00 Output Total 400 ml Balance -400 ml Output Urine Total 400 ml # Voids 3 # Bowel Movements 1 Current Medications Medications (Trade) Dose Ordered Sig/Vijay Route PRN Reason Start Time Stop Time Status Last Admin Dose Admin Acetaminophen (Tylenol) 650 mg Q4H PRN ORAL Mild Pain/Temp > 100.5 10/21/18 22:45 11/20/18 22:44 Artificial Tears (Akwa-Tears) 1 drop TID BOTH EYES 10/22/18 09:00 11/21/18 08:59 10/25/18 08:46 Brimonidine Tartrate (Alphagan) 1 drop BID BOTH EYES 10/22/18 09:00 11/21/18 08:59 10/25/18 08:46 Divalproex Sodium (Depakote Sprinkles) 500 mg BEDTIME ORAL 10/24/18 21:00 11/23/18 20:59 10/24/18 20:37 Guaifenesin/ Dextromethorphan (Robitussin DM Syrup) 10 ml Q4H PRN ORAL For Cough 10/21/18 22:45 11/20/18 22:44 Latanoprost (Xalatan) 1 drop BEDTIME BOTH EYES 10/22/18 21:00 11/21/18 20:59 10/24/18 20:37 Pantoprazole (Protonix) 40 mg BID ORAL 10/22/18 18:00 11/21/18 17:59 10/25/18 08:46 Quetiapine Fumarate (SEROquel) 25 mg THREE TIMES A DAY ORAL 10/24/18 09:00 11/23/18 08:59 10/25/18 08:46 Vitamin D (Vitamin D) 2,000 intlu DAILY ORAL 10/22/18 09:00 11/21/18 08:59 10/25/18 08:46 Laboratory Tests 10/25/18 05:07: White Blood Count 5.1, Red Blood Count 5.46H, Hemoglobin 13.5, Hematocrit 43.1, Mean Corpuscular Volume 79L, Mean Corpuscular Hemoglobin 24.8L, Mean Corpuscular Hemoglobin Concent 31.5L, Red Cell Distribution Width 13.9, Platelet Count 168, Mean Platelet Volume 6.7, Neutrophils (%) (Auto) 40.9L, Lymphocytes (%) (Auto) 40.7, Monocytes (%) (Auto) 12.8H, Eosinophils (%) (Auto) 4.2H, Basophils (%) (Auto) 1.4, Prothrombin Time 29.0H, Prothromb Time International Ratio 2.9H, Sodium Level 139, Potassium Level 4.3, Chloride Level 103, Carbon Dioxide Level 29, Anion Gap 7, Blood Urea Nitrogen 21H, Creatinine 1.3, Estimat Glomerular Filtration Rate , Glucose Level 96, Calcium Level 8.6, Total Bilirubin 0.2, Aspartate Amino Transf (AST/SGOT) 137H, Alanine Aminotransferase (ALT/SGPT) 86H, Alkaline Phosphatase 95, Total Protein 7.3, Albumin 2.7L, Globulin 4.6, Albumin/Globulin Ratio 0.6L Height (Feet): 5 Height (Inches): 7.00 Weight (Pounds): 181 Objective no change Ronnie Torres MD Oct 25, 2018 13:21
[2018-10-25] MEDS ORDERED: SEROQUEL25 MG ORAL (13:28)
[2018-10-25] MEDS ORDERED: PROTONIX40 MG ORAL (13:28)
[2018-10-25] MEDS ORDERED: DEPAKOTE SPRIN125 M1 ORAL (13:28)
--- NOTE | 2018-10-25 13:29 | Discharge Instructions ---
Discharge Instructions Discharge Instructions Follow up with: fu with PMD Diet: other - diabetic diet Activity: other - PT OT Follow Up Orders INR Q Wednesday and Coumadin adjust dose for INR 2.5-3 meanwhile start coumadin 1 mg Q 5pm starting 12/12 For Congestive Heart Failure Reminder Report to your physician any weight gain of 5 pounds or more in one week. Ronnie Torres MD Oct 25, 2018 13:29
[2018-10-25 16:00] VITALS: BP 107/54
--- NOTE | 2018-10-25 23:57 | General Progress Note ---
Assessment/Plan Problem List: (1) Dementia with behavioral disturbance ICD Codes: F03.91 - Unspecified dementia with behavioral disturbance SNOMED: 8576381575809 Assessment/Plan dc aricept dc nemanda decrease depakote decrease seroquel the pt lacks capacity to make decisions. Subjective Neurologic/Psychiatric: Reports: anxiety, depressed, emotional problems Allergies: Coded Allergies: PENICILLINS (Verified Allergy, Unknown, 10/21/18) SHELLFISH DERIVED (Verified Allergy, Unknown, 10/21/18) STRAWBERRY (Verified Allergy, Unknown, 10/21/18) Subjective the pt is stable less confused Objective Last 24 Hour Vital Signs Date Time Temp Pulse Resp B/P (MAP) Pulse Ox O2 Delivery O2 Flow Rate FiO2 10/25/18 16:00 98.5 65 20 107/54 (71) 97 10/25/18 12:00 55 10/25/18 12:00 98.2 56 20 108/55 (72) 97 10/25/18 09:00 Room Air 10/25/18 08:00 97.4 58 20 141/59 (86) 98 10/25/18 08:00 55 10/25/18 04:00 61 10/25/18 04:00 97.2 61 20 115/60 (78) 98 10/25/18 00:00 60 10/25/18 00:00 98.6 70 20 103/71 (82) 99 Intake and Output 10/24/18 10/25/18 18:59 06:59 Output Total 400 ml Balance -400 ml Output Urine Total 400 ml # Voids 3 # Bowel Movements 1 Laboratory Tests 10/25/18 05:07: White Blood Count 5.1, Red Blood Count 5.46H, Hemoglobin 13.5, Hematocrit 43.1, Mean Corpuscular Volume 79L, Mean Corpuscular Hemoglobin 24.8L, Mean Corpuscular Hemoglobin Concent 31.5L, Red Cell Distribution Width 13.9, Platelet Count 168, Mean Platelet Volume 6.7, Neutrophils (%) (Auto) 40.9L, Lymphocytes (%) (Auto) 40.7, Monocytes (%) (Auto) 12.8H, Eosinophils (%) (Auto) 4.2H, Basophils (%) (Auto) 1.4, Prothrombin Time 29.0H, Prothromb Time International Ratio 2.9H, Sodium Level 139, Potassium Level 4.3, Chloride Level 103, Carbon Dioxide Level 29, Anion Gap 7, Blood Urea Nitrogen 21H, Creatinine 1.3, Estimat Glomerular Filtration Rate , Glucose Level 96, Calcium Level 8.6, Total Bilirubin 0.2, Aspartate Amino Transf (AST/SGOT) 137H, Alanine Aminotransferase (ALT/SGPT) 86H, Alkaline Phosphatase 95, Total Protein 7.3, Albumin 2.7L, Globulin 4.6, Albumin/Globulin Ratio 0.6L Height (Feet): 5 Height (Inches): 7.00 Weight (Pounds): 181 General Appearance: alert, confused Ramon De Paz MD Oct 25, 2018 23:57
--- NOTE | 2018-10-26 08:25 | Discharge Summary ---
Discharge Summary Discharge Summary _ DATE OF ADMISSION: 10/21/2018 DATE OF DISCHARGE: 10/25/2018 REASON FOR ADMISSION: 78 years old female, with past medical history of hypertension, Parkinson disease, glaucoma, bipolar disorder, presented for evaluation of near syncopal episode after using the restroom. No recent illness. Patient by herself was unable to provide any history secondary to dementia. Per patient's caregiver , patient had falling episode few weeks ago and had a CT scan of head requested by primary care provider Dr. Hinds. Caregiver also reported intermittent leg swelling., which became more prominent over the last week . Patient had a history of DVT in that leg. Upon evaluation vital signs were stable. CT of the head revealed chronic age-related changes ,but was negative for acute intracranial bleeding or mass-effect. Venous duplex left lower extremity revealed incompletely occlusive deep venous thrombosis of the left common femoral vein with involvement of the greater saphenous venous orifice. Chest x-ray revealed no acute cardiopulmonary pathology. Laboratory workup revealed no leukocytosis, stable hemoglobin and hematocrit. Chemistry demonstrated potassium 5.4, creatinine 1.4 ,BUN 17 . Troponin negative. Urinalysis was negative for UTI. Patient admitted with diagnosis of acute DVT left lower extremity ,near syncopal episode ,dementia, history of psychiatric disorder. CONSULTANTS: psychiatrist [facility] COURSE: Patient admitted to telemetry floor. Patient initially received 2 L of IV solution. Patient started on anticoagulation with Lovenox and Coumadin to bridge to therapeutic INR. INR therapeutic. Lovenox discontinued, continue with Coumadin. Blood pressure was closely monitored and remained stable. No evidence of orthostatic changes. Telemetry revealed sinus rhythm, no ischemic changes. No evidence of arrhythmia. Hyperkalemia treated , and potassium stable prior to discharge. Renal parameters and electrolytes were closely monitored. Nephrotoxics were avoided. Creatinine down to normal after 2 L of IV fluids, possible initial mild dehydration. Fall precautions were maintained. Patient was mobilized as tolerated. Psychiatrist closely followed. Psychiatrist concluded , that patient lacked capacity to make informed decisions. Behavior stabilized with current psychiatric medication regimen Hemoglobin A1c 6.4. Patient provided with diabetic diet. Blood sugar remained stable. Patient will need close monitoring of blood sugar at the facility and possibly starting oral antiglycemic medications. Lipid panel revealed elevated triglycerides. Patient was on low fat low cholesterol diabetic diet. r Repeat lipid panel in 3 months. Noted elevated LFT, no complains of abdominal pain. Transaminitis possibly due to initiation of new psychiatric medications. LFT will be rechecked at the facility next week. GI prophylaxis provided. Supportive care provided. Bowel regimen instituted. Eyedrops for glaucoma continued. Patient clinically stabilized and was ready for [facility] to [facility]. Follow up with medical doctor at the facility. FINAL DIAGNOSES: Acute DVT left lower extremity superficial femoral artery Dementia with behavioral disturbances Hyperkalemia Diabetes melitis 1.5, managed as type 2 ICD Codes: E10.9 - Type 1 diabetes mellit Near syncopal episode probably due to autonomic dysfunction Bipolar disorder DISCHARGE MEDICATIONS: See Medication Reconciliation list. DISCHARGE INSTRUCTIONS: Patient was discharged to the prison facility. Follow up with medical doctor at the facility. I have been assigned to dictate discharge summary for this account. I was not involved in the patient's management. Jeannine Alexis NP Oct 26, 2018 08:25
== END 2018-10-25 16:50 | DRG 300 ==
LOC: EDBD 13:35 → EMR 14:05 → 2E 16:45 → EDBEDREQ 17:55
DX: I82.412 Acute embolism and thrombosis of left femoral vein (principal); F02.81 Dementia in other diseases classified elsewhere, unspecified severity, with behavioral disturbance; R55 Syncope and collapse; G30.9 Alzheimer's disease, unspecified; F31.9 Bipolar disorder, unspecified; G20 Parkinson's disease; Z88.0 Allergy status to penicillin; Z91.013 Allergy to seafood; Z91.018 Allergy to other foods; H40.9 Unspecified glaucoma; E87.5 Hyperkalemia; E10.9 Type 1 diabetes mellitus without complications
CPT/HCPCS: 36415; 70450; 71045; 80053; 80061; 81003; 83036; 83735; 83880; 84100; 84132; 84443; 84484; 84550; 85025; 85610; 85730; 86140; 87081; 93005; 93306; 93971; 96360; 96361; 99285; J8499